=== PATIENT | male | born 1975 | race African-American/Black ===

== ENCOUNTER 2016-10-11 16:26 | Emergency (ER) | payer BC ==
[2016-10-11 16:34] VITALS: BP 130/53; PULSE 74; TEMP 98; BMI 21.7
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
== END 2016-10-11 18:45 | disposition home or self-care (01) ==
LOC: JER 16:26
DX: Z18.10 Retained metal fragments, unspecified (principal)
CPT/HCPCS: 71020-TC; 99281-25